=== PATIENT | female | born 1990 | race African-American/Black ===

== ENCOUNTER 2017-01-14 10:53 | Emergency (ER) | payer OTHER ==
--- NOTE | ~2017-01-14 | CT4 ---
[facility] A Service of [facility] RADIOLOGY TEXT RESULTS PATIENT: PHUONG FOX LOCATION: [facility] : 90 UNIT #: [id number] AGE: [address]: Hunter Anderson MD SEX: F ORDER DR: [id number] [facility] [address] [place], [place] [address] [id number] E MR#: [id number] Acc #: [id number] NAME: PHUONG FOX : 1990 SEX: F STUDY DATE/TIME: 01/14/2017 10:35 UNIT: [facility] ROOM: STUDY DESCRIPTION: CT Abd and Pelv Wo Cont Attending Physician: Nghia Anderson M.D. Ordering Physician: Alexandra Machado P.A.-C. Primary Care Physician: Agatha Holguin A.P.R.N. MEDICAL IMAGING REPORT This report is preliminary unless electronic signature is present EXAM CT abdomen and pelvis with without contrast 01/14/2017 1035 hours HISTORY 26-year-old woman with 2-day history of right flank pain and right back pain worsening this morning. COMPARISON None. TECHNIQUE Helical noncontrasted images were obtained from the lung bases through the pubic symphysis. No oral or intravenous contrast was administered. Sagittal and coronal reconstructions were performed. Total exam DLP 547 mGy-cm. This CT exam was performed with one or more of the following radiation dose reduction techniques: automatic control, adjustment of mA and/or kV according to patient size, and iterative reconstruction. FINDINGS Images through the lung bases demonstrate clear lungs. There is no pleural effusion. The distal esophagus is normal. Images through the abdomen without contrast demonstrate a normal appearance to the liver, spleen, pancreas and gallbladder. There is no bile duct dilatation. The adrenal glands are normal. The kidneys have a normal noncontrasted appearance. There is no mass, stone or obstruction. There is no ureterectasis or ureteral calculus seen. The bladder is normal. There is a lower left pelvic phlebolith and a tiny far inferior right pelvic phlebolith. The stomach is contracted but normal in appearance. The unopacified small bowel is normal. The terminal ileum and appendix are normal. There is no colonic wall thickening or distension. [facility] A Service of [facility] RADIOLOGY TEXT RESULTS PATIENT: PHUONG FOX LOCATION: [facility] : 90 UNIT #: [id number] AGE: [address]: Hunter Anderson MD SEX: F ORDER DR: CT pelvis demonstrates a retroverted uterus. There is no adnexal mass or definite pelvic free fluid. IMPRESSION 1. Negative noncontrasted CT of the abdomen and pelvis. There are no renal or ureteral calculi. 2. There is a normal appearance to the gallbladder, bile ducts and pancreas. 3. No evidence of appendicitis. 4. Retroverted uterus with no definite acute finding in the pelvis. Dictated by... Annette Jimenez M.D. THIS IS AN ELECTRONICALLY VERIFIED REPORT Annette Jimenez M.D. at 01/14/2017 2:07 PM NARGIS/davey TD: 01/14/2017 13:02 JOB #: [id number] MEDICAL IMAGING REPORT Page 1 of 1 COPY
[2017-01-14 09:37] LABS: URINE SOURCE CLEAN CATCH
[2017-01-14 09:37] LABS: BASOPHIL% 0.3 % (0-2.5); EOSINOPHIL# 0.1 X10e3 (0-0.7); EOSINOPHIL% 0.4 % (0.0-7.0); HEMATOCRIT 44.2 % (35.0-45.0); HEMOGLOBIN 14.8 gm/dL (12.0-16.0); MEAN CELL VOLUME 89.6 FL (83-96); MEAN CORPUSCULAR HEMOGLOBIN 29.9 PG (28-34); MEAN CORPUSCULAR HGB CONC 33.4 g/dL (30-36); MEAN PLATELET VOLUME 7.9 FL (6.5-11.5); MONOCYTE# 1.1 X10e3 (0-1.0); MONOCYTE% 7.2 % (3.0-12.0); NEUTROPHIL# 10.9 X10e3 (1.5-7.1); NEUTROPHIL% 72.1 % (40-75); PLATELET COUNT 337 X10e3 (140-420); RED BLOOD COUNT 4.93 X10e (3.90-5.30); RED CELL DISTRIBUTION WIDTH 13.9 % (11.0-15.5); WHITE BLOOD COUNT 15.1 X10e3 (4.0-10.5)
[2017-01-14 09:39] LABS: DIFF IND YES
[2017-01-14 09:51] LABS: CULTURE INDICATED? YES; URBCS1 AUWI 25-50 /[HPF] (0-2); URINE APPEARANCE TURBID; URINE BACTERIA AUWI 1+ (NEGATIVE); URINE BILIRUBIN NEG (NEG); URINE BLOOD 2+ (NEG); URINE COLOR YELLOW; URINE GLUCOSE NEG (NEG); URINE KETONE NEG (NEG); URINE LEUKOCYTE ESTERASE 3+ (NEG); URINE NITRATE NEG (NEG); URINE PH 7.5 (5-8); URINE PROTEIN 1+ (NEG); URINE SPECIFIC GRAVITY 1.013 (1.003-1.035); URINE SQUAMOUS EPITHELIAL CELL OCC /[HPF]; UWBCS1 AUWI INNUM (0-5)
[2017-01-14 09:55] LABS: CALCIUM SERUM 9.5 mg/dL (8.4-10.2); CREATININE SERUM 0.7 mg/dL (0.6-1.4); GLOM FILT RATE Estimated 119.6 mL/min (>60); POTASSIUM 4.1 mmol/L (3.5-5.1)
[2017-01-14 10:00] LABS: PLATELET ESTIMATE NORMAL (NORMAL); RBC NORMAL YES
== END 2017-01-14 11:25 | disposition home or self-care (01) ==
LOC: CED 10:53
PROVIDERS: Physician Assistant
DX: N30.00 Acute cystitis without hematuria (principal); F41.9 Anxiety disorder, unspecified; F17.210 Nicotine dependence, cigarettes, uncomplicated; Z88.6 Allergy status to analgesic agent
CPT/HCPCS: 36415; 74176; 80048; 81003; 84703; 85025; 87086; 87088; 87186; 96361; 96365; 96375; 99284; J0696; J1885; J2060; J2405

== ENCOUNTER 2017-02-15 22:54 | Emergency (ER) | payer SELFPAY ==
[2017-02-15 23:33] LABS: URINE SOURCE CLEAN CATCH
[2017-02-15 23:38] LABS: URINE APPEARANCE CLEAR; URINE BILIRUBIN NEG (NEG); URINE BLOOD NEG (NEG); URINE COLOR YELLOW; URINE GLUCOSE NEG (NEG); URINE KETONE NEG (NEG); URINE LEUKOCYTE ESTERASE NEG (NEG); URINE NITRATE NEG (NEG); URINE PH 5.5 (5-8); URINE PROTEIN NEG (NEG); URINE SPECIFIC GRAVITY 1.012 (1.003-1.035); URINE UROBILINOGEN 0.2 MG/DL (NEG)
[2017-02-15 23:41] LABS: CULTURE INDICATED? NO
== END 2017-02-16 00:45 | disposition home or self-care (01) ==
LOC: CED 22:54
DX: M54.5 Low back pain (principal); F17.200 Nicotine dependence, unspecified, uncomplicated
CPT/HCPCS: 81003; 84703; 99283